=== PATIENT | male | born 1950 | race Caucasian/White ===

== ENCOUNTER → 2017-05-07 | Outpatient (CLI) | payer OTHER | END | disposition home or self-care (01) | LOC: GMAB 10:08 | PROVIDERS: ATTEND Family Medicine | DX: I42.9 Cardiomyopathy, unspecified (principal) ==

== ENCOUNTER → 2017-06-07 | Outpatient (CLI) | payer OTHER | END | disposition home or self-care (01) | LOC: GMAB 10:38 | PROVIDERS: ATTEND Family Medicine | DX: I11.0 Hypertensive heart disease with heart failure (principal); I50.40 Unspecified combined systolic (congestive) and diastolic (congestive) heart failure ==

== ENCOUNTER → 2017-12-18 | Outpatient (CLI) | payer MEDICARE ==
--- NOTE | 2017-12-18 22:44 | CT ---
EXAM DATE: 12/18/2017 2:39 PM CDT. PROCEDURE: CT LUMBAR SPINE WITHOUT IV CONTRAST. INDICATION: SPINAL STENOSIS. COMPARISON: None. TECHNIQUE: Axial CT images of the lumbar spine were obtained without administration of intravenous contrast. This exam was performed according to our departmental dose-optimization program which includes use of Automated Exposure Control, adjustment of the mA and/or kV according to patient size and/or use of iterative reconstruction technique. FINDINGS: There is mild dextrocurvature of the lumbar spine. The lumbar vertebral bodies otherwise demonstrate normal height and alignment. Mild intervertebral disc space height loss L5-S1. Intervertebral disc spaces are otherwise within normal limits. No acute fracture. T12-L1: No significant disc bulge. No spinal canal or neural foraminal narrowing. L1-L2: Mild left eccentric disc bulge. No spinal canal stenosis. Mild facet arthropathy without significant foraminal stenosis. L2-L3: Disc bulge and ligamentous hypertrophy contributes to mild narrowing of the spinal canal. Moderate facet arthropathy results in mild right foraminal narrowing. No significant left foraminal stenosis. L3-L4: No significant spinal canal stenosis. Moderate facet arthropathy contributes to mild right foraminal narrowing. No significant left foraminal stenosis. L4-L5: Mild disc bulge results in mild narrowing of the spinal canal. Moderate facet arthropathy contributes to moderate bilateral foraminal stenoses. L5-S1: Disc bulge without spinal canal stenosis. Mild bilateral facet arthropathy contributes to mild bilateral foraminal narrowing. Abdominal aortic aneurysm measuring 6.3 cm status post aortoiliac endograft placement. The remainder of the partially visualized abdominopelvic organs are unremarkable. IMPRESSION: Mild multilevel degenerative changes of the lumbar spine superimposed on mild dextrocurvature. Degenerative changes most prominent at L4-L5. Infrarenal abdominal aortic aneurysm measuring 6.3 cm status post aortoiliac endograft. Findings are unchanged as compared to 09/02/2015. Electronically signed by: Jaison Yi MD 12/18/2017 10:43 PM CDT
--- NOTE | 2017-12-19 08:51 | US ---
EXAM DESCRIPTION: Extremity,Lower Jose Arteries CLINICAL HISTORY: 67 years Male, PERIPHERAL VASCULAR DISEASE COMPARISON: None. TECHNIQUE: Duplex bilateral lower extremity arterial Doppler evaluation utilizing grayscale, color Doppler, and spectral pulse Doppler evaluation. FINDINGS: Bilaterally from the level of the groin at the common femoral artery monophasic wave pattern throughout the right lower extremity is present and throughout the left lower extremity except for a small focus of biphasic flow in the distal SFA on the left. Significant inflow disease from the distal aortic or iliac stenoses bilaterally is suspected with the changes more severe on the right than on the left. On the right monophasic wave pattern with velocities between 12 and 24 cm/s is present from the groin to the level of the peroneal artery with no flow confirmed in the right posterior tibial or dorsalis pedis artery. On the left, monophasic flow with slightly better velocities are present with the peak velocity in the common femoral artery of 58 cm/s. Lower velocities between 35 and 52 cm/s in the SFA and 27 cm/s in the popliteal artery is present with a monophasic wave pattern. Flow is preserved in the trifurcation vessels with a focus of accelerated flow suggesting a distal stenosis in the posterior tibial artery with spectral broadening and a monophasic wave pattern with peak velocities most diminished and dampened wave pattern noted in the dorsalis pedis artery. IMPRESSION: Markedly abnormal examination suggesting significant distal aortic and pelvic atherosclerotic stenoses with dampened monophasic wave pattern bilaterally throughout both lower extremities with no significant flow noted in the right posterior tibial and dorsalis pedis vessel. High-grade inflow disease above the level of the inguinal ligament bilaterally is suspected, likely with additional atherosclerosis in both lower extremities, right worse than left. Correlation with ankle brachial indices may be of value as well. Electronically signed by: Triston Zaldivar MD 12/19/2017 8:50 AM CDT
== END | disposition home or self-care (01) ==
LOC: US 14:30
PROVIDERS: ATTEND Family Medicine
DX: I73.9 Peripheral vascular disease, unspecified (principal); M54.5 Low back pain; M47.896 Other spondylosis, lumbar region

== ENCOUNTER → 2017-12-23 | Outpatient (CLI) | payer MEDICARE ==
--- NOTE | 2017-12-23 14:14 | CT ---
EXAM DESCRIPTION: CTA Runoff. Computed tomography. CLINICAL HISTORY: STENOSIS COMPARISON: CT abdomen 09/02/2015. TECHNIQUE: CT angiography of the abdominal aorta and both lower extremities is performed during rapid bolus administration of IV contrast media. 100 mL was given due to patient renal status. Three-dimensional volume-rendering imaging is reviewed along with axial helical 2.5 mm source images . Delayed images popliteal fossa bilateral mid feet Total.. Exam DLP: 1948.72 mGy-cm. This exam was performed according to our departmental CT dose-optimization program which includes automated exposure control, adjustment of the mA and/or kV according to patient size and/or use of iterative reconstruction technique; to reduce radiation dose to as low as reasonably achievable (ALARA). FINDINGS: Upper abdominal aorta: Atherosclerotic intimal wall thickening with minimal calcification. Calcification of the ostia of the celiac axis and SMA with 30% diameter stenosis of the celiac axis. Mid-abdominal aorta: Bilateral single renal arteries with early bifurcation of the right renal artery and bifurcation of the left renal artery just medial to the renal pelvis. Moderate moderate calcification of the bilateral ostia approximately 40% diameter stenosis on the right.. Distal abdominal aorta: Infrarenal mesh aortic iliac stent begins just below the renal artery origins. Proximal stent shows thrombus on the posterior wall which becomes circumferential just above the iliac bifurcation. Maximum diameter of the outer aneurysmal lumen is 6.6 x 5.8 cm. This is at the L3-4 disc space level. Maximal stent dimensions are 3.5 x 3.8 cm at the L3 level. 1.7 x 1.7 cm. Radiodense material seen in the posterior aneurysm external to the stent is interpreted to be calcification. Also seen on the prior study. No stent leak is noted. Common iliacs: Right common iliac branch of the stent is completely occluded and terminates just above the right common iliac bifurcation. Minimal intimal thickening/thrombus of the left iliac branch of the stent. Internal iliacs: Moderate atherosclerotic calcifications on the right with opacification from collaterals. Left common iliac artery and branches are well seen. external iliac artery: Not opacified. No calcification and intimal thickening of the left vessel but patent. Right RESOURCE COORDINATOR: Right vessel Opacified by collaterals from the abdominal wall with moderate atherosclerotic calcification. Left vessel opacified with moderate atherosclerotic calcification and bifurcation unremarkable.. Right SFA intimal wall thickening and irregularities of the lumen. Right popliteal: No contrast in the initial or delayed images. Minimal atherosclerotic calcification. Right trifurcation vessels: Minimal contrast proximal PRODUCT ASSEMBLER with irregular calcification not visualized at the level of the ankle mortise. Anterior tibial artery not seen on initial images and intermittently poorly visualized on delayed images. PDA Well-demonstrated on the delayed images but appears occluded above the level of the ankle mortise. Peroneal artery poorly visualized proximally on the initial images in and intermittently visualized on the delayed images. Left SFA: Intermittent narrowing with focal calcification distally. Poor opacification distally. Better on delayed images. Left popliteal: Minimal or no contrast initially. Fair amount of contrast on the delayed images.. Left trifurcation vessels: PRODUCT ASSEMBLER Poorly visualized on the initial images and occluded above the ankle. Peroneal and MIKE not visualized on the initial images. Delayed: Poor visualization of the peroneal and PRODUCT ASSEMBLER and not visualized above the ankle. MIKE not visualized. Other: Minimal atelectasis in the lung bases. Minimal enlargement of the right lobe of the liver. Spondylosis in the lumbar spine. Small fatty inguinal hernia not containing bowel. IMPRESSION: 1. Complete occlusion of the right common iliac branch of the aortoiliac mesh stent. More thrombus in the aortic segment with smaller diameter of contrast lumen in the stent. Complete occlusion of the right common iliac branch was not seen on the prior study. Contrast flow diminished in the right internal iliac and right common femoral artery from collaterals. Initial visualization of right trifurcation vessels was 4 but improvement with delay. Reported no runoff into the ankle. 2. Poor contrast flow into the distal left femoral artery and popliteal. Delayed visualization of the left popliteal artery with trifurcation vessels not visualized in the ankle. 3. Varying degrees of stenosis of the celiac axis, proximal SMA, and bilateral proximal renal arteries. Electronically signed by: Ki Graham MD 12/23/2017 2:12 PM CDT
== END | disposition home or self-care (01) ==
LOC: CT 09:33
PROVIDERS: ATTEND Family Medicine
DX: M48.07 Spinal stenosis, lumbosacral region (principal)

== ENCOUNTER → 2018-01-06 | Outpatient (CLI) | payer MEDICARE | LOC: GMAB 14:35 | PROVIDERS: ATTEND Family Medicine | DX: I70.92 Chronic total occlusion of artery of the extremities (principal) ==

== ENCOUNTER 2018-02-11 20:02 | Emergency (ER) | payer MEDICARE ==
--- NOTE | 2018-02-11 20:12 | ED.PDOC ---
History of Present Illness - General Chief Complaint: Respiratory Problem Time Seen by Provider: 02/11/18 20:09 Source: patient, family - Exam Limitations: no limitations - History of Present Illness Initial Comments: Eduardo Briones 67 y/o male with history of CAD s/p pacemaker;PVD w/recent femorofemoral crossover graft 30 December 2017 brought by after he was found to be shaky,sob which gradually got worse the last 2 days.Denies cough,dysuria , chest pain symptoms,N/V/D.Had T-104.1 taken here in er. Timing/Duration: other - see hpi Severity: moderate Activities at Onset: none Possible Cause: no prior episodes Improving Factors: nothing Worsening Factors: nothing Associated Symptoms: fever Respiratory Risk Factors: no cause identified Allergies/Adverse Reactions: Allergies Penicillins Allergy (Verified 02/11/18 20:23) Home Medications: Ambulatory Orders Amiodarone HCl [Pacerone] 200 mg PO DAILY 02/11/18 Apixaban [Eliquis] 5 mg PO BID 02/11/18 Atorvastatin Calcium [Lipitor] 40 mg PO BEDTIME 02/11/18 Benztropine Mesylate 2 mg PO DAILY 02/11/18 Carvedilol [Coreg] 6.25 mg PO BID 02/11/18 Furosemide 40 mg PO BID 02/11/18 Pantoprazole Sodium 40 mg PO DAILY 02/11/18 Pregabalin [Lyrica] 100 mg PO BID 02/11/18 Ranolazine [Ranexa] 500 mg PO BID 02/11/18 Rotigotine [Neupro] 4 mg TD DAILY 02/11/18 Sacubitril-Valsartan [Entresto 49-51 mg] 1 tablet PO BID 02/11/18 Spironolactone 25 mg PO DAILY 02/11/18 Topiramate [Qudexy Xr] 200 mg PO BID 02/11/18 Review of Systems - Review of Systems Constitutional: States: chills, fever EENTM: States: no symptoms reported Respiratory: States: see HPI Cardiology: States: see HPI Gastrointestinal/Abdominal: States: no symptoms reported Genitourinary: States: no symptoms reported Musculoskeletal: States: no symptoms reported Skin: States: no symptoms reported All other Systems: Reviewed and Negative Past Medical History (General) - Patient Medical History Hx Cardiac Disorders: Yes - [place]-1997 Hx Congestive Heart Failure: Yes Hx Other PMH: Yes - PVD Surgical History: coronary bypass surgery, pacemaker, other - AAA surgery, femoral bypass graft Family Medical History - Family History Father Living Status: Unknown Hx Cardiac Disease: Yes - multiple family members Physical Exam - Physical Exam General Appearance: Alert, Anxious, No apparent distress, Other - tremulous Eyes, Ears, Nose, Throat Exam: normal ENT inspection, pharynx normal Neck: non-tender, full range of motion, supple, normal inspection Respiratory: lungs clear, normal breath sounds, no respiratory distress Cardiovascular/Chest: normal peripheral pulses, regular rate, rhythm, no murmur Peripheral Pulses: posterior tibialis,right: 1+ - doppler, posterior tibialis, left: 1+ - doppler Gastrointestinal/Abdominal: non tender, soft, no organomegaly Extremity: non-tender, no pedal edema, no calf tenderness Neurologic: alert, oriented x 3 Skin Exam: normal color, warm/dry, other - left groin incision site -well healed no tender induration,no drainage noted Progress - Progress Progress: 02/11/18 21:30 Vital Signs - 8 hr 02/11/18 02/11/18 20:19 20:28 Temperature 104.1 F H Pulse Rate [ 79 left] Respiratory 18 24 Rate Blood Pressure 166/97 [left] O2 Sat by Pulse 98 Oximetry 02/11/18 21:37 NO BLOOD CULTURE TAKEN SINCE NO ANAEROBIC CULTURE ;Accdg. to Lab personnel could not just get one bottle since it will not be accepted to reference lab where it is sent;patient wiil be given initial coverage with Vancomycin for his procedure done 3 weeks ago;Lactic acid within normal range. 02/11/18 21:43 calculated CrCl-45 ml/min - Results/Orders Results/Orders: 02/11/18 20:11 B-TYPE NATRIURETIC PEPTIDE/BNP Stat CARDIAC PANEL,ER Stat HEPATIC FUNCTION PANEL Stat LACTIC ACID Stat Chest,1 View [RAD] Stat 02/11/18 21:27 URINALYSIS Stat 02/11/18 21:36 Vancomycin HCl Inj 1,000 mg Sodium Chloride 0.9% 250Ml [NS 250ml] 250 ml IVPB ONCE Laboratory Results - last 24 hr 02/11/18 02/11/18 02/11/18 20:39 20:39 21:37 WBC 8.9 RBC 4.14 L Hgb 12.5 L Hct 37.2 L MCV 89.9 MCH 30.1 MCHC 33.5 RDW 15.6 H Plt Count 133 MPV 9.3 Absolute Neuts (auto) 7.00 H Absolute Lymphs (auto) 0.50 L Absolute Monos (auto) 1.00 H Absolute Eos (auto) 0.30 Absolute Basos (auto) 0.00 Neutrophils % 78.6 H Lymphocytes % 6.0 L Monocytes % 11.8 H Eosinophils % 3.3 Basophils % 0.3 PT 16.5 H INR 1.430 PTT (SP) 30.7 Sodium 136 Potassium 4.0 Chloride 110 Carbon Dioxide 20 L Anion Gap 10.0 L BUN 40 H Creatinine 2.12 H BUN/Creatinine Ratio 18.9 Random Glucose 152 H Serum Osmolality 284.7 Lactic Acid 1.5 Calcium 8.4 Magnesium 1.8 Total Bilirubin 0.6 Direct Bilirubin 0.1 Indirect Bilirubin 0.5 AST 18 ALT 14 Alkaline Phosphatase 49 Creatine Kinase 264 H* CK-MB (CK-2) 1.9 CK-MB (CK-2) % Not Reportable Troponin I 0.05 B-Natriuretic Peptide 555.0 H* Serum Total Protein 7.2 Albumin 3.5 Urine Color Yellow Urine Appearance Clear Urine pH 5.0 Ur Specific [place] >= 1.030 Urine Protein 100 H Urine Glucose (UA) Negative Urine Ketones Trace Urine Blood Moderate H Urine Nitrite Negative Urine Bilirubin Negative Urine Urobilinogen 0.2 Ur Leukocyte Esterase Negative Urine RBC 1-3 Urine WBC 0-1 Ur Epithelial Cells 0 Urine Bacteria Rare Urine Mucus Trace - EKG/XRAY/CT Comments: HR 69-pacemaker rhythm XRAY: chest - no acute abnormalities/radiologist Departure - Departure Clinical Impression: History of recent vascular procedure, CKD (chronic kidney disease) stage 3, GFR 30-59 ml/min Dyspnea Qualifiers: Dyspnea type: unspecified Qualified Code(s): R06.00 - Dyspnea, unspecified Fever Qualifiers: Fever type: unspecified Qualified Code(s): R50.9 - Fever, unspecified Time of Disposition: 22:22 Disposition: Discharge to Home or Self Care Departure Forms: ED Discharge - Pt. Copy, Patient Portal Self Enrollment Referrals: Juanito Britton MD [Primary Care Provider] - 1-2 Weeks Home Medications: Ambulatory Orders Amiodarone HCl [Pacerone] 200 mg PO DAILY 02/11/18 Apixaban [Eliquis] 5 mg PO BID 02/11/18 Atorvastatin Calcium [Lipitor] 40 mg PO BEDTIME 02/11/18 Benztropine Mesylate 2 mg PO DAILY 02/11/18 Carvedilol [Coreg] 6.25 mg PO BID 02/11/18 Furosemide 40 mg PO BID 02/11/18 Pantoprazole Sodium 40 mg PO DAILY 02/11/18 Pregabalin [Lyrica] 100 mg PO BID 02/11/18 Ranolazine [Ranexa] 500 mg PO BID 02/11/18 Rotigotine [Neupro] 4 mg TD DAILY 02/11/18 Sacubitril-Valsartan [Entresto 49-51 mg] 1 tablet PO BID 02/11/18 Spironolactone 25 mg PO DAILY 02/11/18 Topiramate [Qudexy Xr] 200 mg PO BID 02/11/18 Transfer to Outside Facility - Transfer Information Accepting Provider:: D/W Dr. Madison-Hospitalist Accepting Facility: [facility] Reason for Transfer: required specialist not available - infectious disease/
[2018-02-11] MEDS ORDERED: ACETAMINOPHEN 325 MG TAB PO ONE (20:42)
--- NOTE | 2018-02-11 21:03 | RAD ---
EXAM DESCRIPTION: Chest,1 View CLINICAL HISTORY: short of breath, fever COMPARISON: None. FINDINGS: Cardiac silhouette is within normal limits. There is no focal parenchymal or pleural disease. Visualized osseous structures are within normal limits. IMPRESSION: No evidence of acute cardiopulmonary disease. Electronically signed by: Ki Tabor 02/11/2018 9:02 PM CDT
[2018-02-11] MEDS ORDERED: VANCOMYCIN HCL INJ 1,000 MG in SODIUM CHLORIDE 0.9% 250ML 250 ML IVPB ONE (21:36)
[2018-02-11] MEDS ORDERED: VANCOMYCIN HCL INJ 1,000 MG VIAL IVPB ONE (21:42)
[2018-02-11] MEDS ORDERED: SODIUM CHLORIDE 0.9% 250ML 250 ML ONE (21:42)
[2018-02-11 22:11] VITALS: TEMP 102.1; O2SAT 94
[2018-02-11 22:59] VITALS: BP 113/69
== END 2018-02-11 23:01 | disposition short-term general hospital (02) ==
LOC: ER 20:02
DX: R06.00 Dyspnea, unspecified (principal); R50.9 Fever, unspecified; N18.3 Chronic kidney disease, stage 3 (moderate); I50.9 Heart failure, unspecified; I25.2 Old myocardial infarction; Z95.1 Presence of aortocoronary bypass graft; Z95.0 Presence of cardiac pacemaker; Z98.890 Other specified postprocedural states; Z79.01 Long term (current) use of anticoagulants
CPT/HCPCS: 36415; 71045; 80048; 80076; 81001; 82550; 82553; 83605; 83880; 84484; 85025; 85610; 85730; 93005; J3370; J7050

== ENCOUNTER 2018-02-21 11:50 | Emergency (ER) | payer MEDICARE ==
[2018-02-21] MEDS ORDERED: SODIUM CHLORIDE 0.9% 500ML 500 ML IVS ONE (12:18)
--- NOTE | 2018-02-21 12:20 | ED.PDOC ---
History of Present Illness - General Chief Complaint: Cardiovascular Problem Stated Complaint: Low BP Time Seen by Provider: 02/21/18 12:17 Source: patient - History of Present Illness Timing/Duration: 1/2 hour Severity: mild Improving Factors: rest Worsening Factors: nothing Associated Symptoms: other - vision changes Allergies/Adverse Reactions: Allergies Penicillins Allergy (Verified 02/11/18 20:23) Home Medications: Ambulatory Orders Amiodarone HCl [Pacerone] 200 mg PO DAILY 02/11/18 Apixaban [Eliquis] 5 mg PO BID 02/11/18 Atorvastatin Calcium [Lipitor] 40 mg PO BEDTIME 02/11/18 Benztropine Mesylate 2 mg PO DAILY 02/11/18 Carvedilol [Coreg] 6.25 mg PO BID 02/11/18 Furosemide 40 mg PO BID 02/11/18 Pantoprazole Sodium 40 mg PO DAILY 02/11/18 Pregabalin [Lyrica] 100 mg PO BID 02/11/18 Ranolazine [Ranexa] 500 mg PO BID 02/11/18 Rotigotine [Neupro] 4 mg TD DAILY 02/11/18 Sacubitril-Valsartan [Entresto 49-51 mg] 1 tablet PO BID 02/11/18 Spironolactone 25 mg PO DAILY 02/11/18 Topiramate [Qudexy Xr] 200 mg PO BID 02/11/18 Review of Systems - Review of Systems Constitutional: Denies: chills, diaphoresis, fever, malaise, weakness EENTM: States: other - "seeing spots" Respiratory: States: no symptoms reported. Denies: cough, short of breath Cardiology: States: no symptoms reported. Denies: chest pain, palpitations, syncope Gastrointestinal/Abdominal: Denies: abdominal pain, diarrhea, nausea, vomiting Genitourinary: States: no symptoms reported Musculoskeletal: States: no symptoms reported Skin: States: no symptoms reported Neurological: Denies: headache, numbness, paresthesia Past Medical History (General) - Patient Medical History Hx Stroke: Yes Hx Cardiac Disorders: Yes - [place]-1997 Hx Congestive Heart Failure: Yes Hx Pacemaker: Yes - defibrillator Hx Hypertension: Yes - Vaccination History Hx Tetanus, Diphtheria Vaccination: No Hx Influenza Vaccination: No Hx Pneumococcal Vaccination: No - Social History Hx Alcohol Use: Yes - occ Family Medical History - Family History Father Living Status: Unknown Hx Cardiac Disease: Yes - multiple family members Physical Exam - Physical Exam General Appearance: Alert, No apparent distress Eye Exam: bilateral normal Ears, Nose, Throat: normal ENT inspection, normal pharynx Neck: supple Respiratory: lungs clear, normal breath sounds, no respiratory distress Cardiovascular/Chest: regular rate, rhythm, no edema Gastrointestinal/Abdominal: normal bowel sounds, non tender, soft Extremity: normal range of motion, non-tender, normal inspection Neurologic: no motor/sensory deficits, alert, normal mood/affect, oriented x 3 Skin Exam: normal color, warm/dry Departure - Departure Clinical Impression: Orthostatic hypotension, Dehydration, mild Disposition: Discharge to Home or Self Care Departure Forms: ED Discharge - Pt. Copy, Patient Portal Self Enrollment Instructions: DI for Chest Pain Referrals: Juanito Britton MD [Primary Care Provider] - 1-2 Weeks Home Medications: Ambulatory Orders Amiodarone HCl [Pacerone] 200 mg PO DAILY 02/11/18 Apixaban [Eliquis] 5 mg PO BID 02/11/18 Atorvastatin Calcium [Lipitor] 40 mg PO BEDTIME 02/11/18 Benztropine Mesylate 2 mg PO DAILY 02/11/18 Carvedilol [Coreg] 6.25 mg PO BID 02/11/18 Furosemide 40 mg PO BID 02/11/18 Pantoprazole Sodium 40 mg PO DAILY 02/11/18 Pregabalin [Lyrica] 100 mg PO BID 02/11/18 Ranolazine [Ranexa] 500 mg PO BID 02/11/18 Rotigotine [Neupro] 4 mg TD DAILY 02/11/18 Sacubitril-Valsartan [Entresto 49-51 mg] 1 tablet PO BID 02/11/18 Spironolactone 25 mg PO DAILY 02/11/18 Topiramate [Qudexy Xr] 200 mg PO BID 02/11/18
[2018-02-21 12:31] VITALS: TEMP 98.7
[2018-02-21 13:17] VITALS: O2SAT 96
[2018-02-21 13:29] VITALS: BP 111/65
== END 2018-02-21 13:38 | disposition home or self-care (01) ==
LOC: ER 11:50
DX: I95.1 Orthostatic hypotension (principal); E86.0 Dehydration; I11.0 Hypertensive heart disease with heart failure; I50.9 Heart failure, unspecified; I25.2 Old myocardial infarction; Z95.810 Presence of automatic (implantable) cardiac defibrillator; Z79.01 Long term (current) use of anticoagulants; Z79.899 Other long term (current) drug therapy; Z86.73 Personal history of transient ischemic attack (TIA), and cerebral infarction without residual deficits
CPT/HCPCS: 36415; 80053; 83605; 85025; J7040

== ENCOUNTER → 2018-05-30 | Outpatient (CLI) | payer MEDICARE | LOC: GMAE 10:13 | PROVIDERS: ATTEND Family Medicine | DX: I49.2 Junctional premature depolarization (principal); R06.02 Shortness of breath ==

== ENCOUNTER → 2018-06-04 | Outpatient (CLI) | payer MEDICARE ==
--- NOTE | 2018-06-04 16:50 | RAD ---
EXAM DESCRIPTION: Chest,2 Views CLINICAL HISTORY: CHEST PAIN COMPARISON: Previous study February 11, 2018 TECHNIQUE: PA/lateral FINDINGS: Heart is large with centrally prominent pulmonary vascularity. Cardiac pacer defibrillator is in place with unchanged position of electrode leads. No pleural effusion or pneumothorax. No consolidating infiltrate. Lateral view shows intact sternum and T-spine. No significant change since previous study. IMPRESSION: Large heart without congestive failure. Electronically signed by: Gordy Simon MD 06/04/2018 4:49 PM CDT
== END ==
LOC: RAD 16:32
PROVIDERS: ATTEND Family Medicine
DX: R07.9 Chest pain, unspecified (principal); I51.7 Cardiomegaly

== ENCOUNTER → 2019-03-13 | Outpatient (CLI) | payer MEDICARE ==
--- NOTE | 2019-03-13 11:06 | RAD ---
EXAM DESCRIPTION: Chest,2 Views CLINICAL HISTORY: DYSPHONIA COUGH COMPARISON: Previous study June 04, 2018 TECHNIQUE: PA/lateral FINDINGS: Cardiac history defibrillator is in place. Heart size is large with normal pulmonary vascularity. No pneumothorax. Slight blunting of costophrenic angles consistent with trace pleural fluid bilaterally. Lungs are clear with no consolidating infiltrate. Lateral view shows intact sternum and T-spine. IMPRESSION: Large heart without congestive failure. Electronically signed by: Gordy Simon MD 03/13/2019 11:03 AM CDT
== END ==
LOC: RAD 10:13
PROVIDERS: ATTEND Otolaryngology Otolaryngology/Facial Plastic Surgery
DX: R49.0 Dysphonia (principal); R05 Cough

== ENCOUNTER → 2019-04-02 | Outpatient (CLI) | payer MEDICARE | LOC: YCFC.O 10:04 | PROVIDERS: ATTEND Family Medicine | DX: I50.9 Heart failure, unspecified (principal); R58 Hemorrhage, not elsewhere classified; E78.5 Hyperlipidemia, unspecified; R53.83 Other fatigue ==

== ENCOUNTER → 2019-07-10 | Outpatient (CLI) | payer MEDICARE ==
[~2019-07-10] MED LIST: ALBUTEROL SULFATE 2.5 MG/3 ML VIAL NEB ONE
== END ==
LOC: RESP 10:23
PROVIDERS: ATTEND Family Medicine
DX: R06.02 Shortness of breath (principal)
CPT/HCPCS: 94060; J7611

== ENCOUNTER → 2019-08-20 | Outpatient (CLI) | payer MEDICARE | LOC: LAB.O 14:21 | PROVIDERS: ATTEND Family Medicine | DX: N39.0 Urinary tract infection, site not specified (principal) ==

== ENCOUNTER → 2020-01-18 | Outpatient (CLI) | payer MEDICARE | LOC: GMAE 11:45 | PROVIDERS: ATTEND Family Medicine | DX: Z12.5 Encounter for screening for malignant neoplasm of prostate (principal); I10 Essential (primary) hypertension; E78.2 Mixed hyperlipidemia | CPT/HCPCS: 84443; G0103 ==

== ENCOUNTER → 2020-01-28 | Outpatient (CLI) | payer MEDICARE ==
--- NOTE | 2020-01-28 22:37 | US ---
EXAM DESCRIPTION: Renal: Ultrasound. CLINICAL HISTORY: 69 years Male ACUTE KIDNEY FAILURE COMPARISON: CTA abdominal aorta and bilateral lower extremity runoff November 10. TECHNIQUE: Transcutaneous scanning: Two-dimensional and Doppler modes. FINDINGS: Right kidney measures 9.8 x 5.9 x 4.96 cm; mid-renal cortical thickness 12 mm. . Cortical echogenicity greater than the liver. No hydronephrosis No echogenic stones. Minimally lobulated contour of the kidney with no perinephric fluid. Normal vascularity. Proximal ureter not seen. Left kidney measures 11.6 x 5.6 x 7.2 cm; mid-renal cortical thickness 11.5 mm.. Difficult to evaluate cortical echogenicity due to patient body habitus, with limited resolution of images No hydronephrosis. No echogenic stones. Lobulated contour of the kidney with no perinephric fluid. Normal vascularity.. Proximal ureter not visible. Urinary bladder was visualized. 6.8 mm. Ureteral jet in the bladder not seen by color Doppler. No voiding. Abdominal aorta: Normal caliber of the proximal and mid segment. AP diameter of the distal abdominal [place] aorta is 6.7 cm. This includes endovascular stent graft. Similar size on the prior CTA aorta. The anechoic lumen measures approximately 1.4 cm. IMPRESSION: 1. Right kidney smaller than the left kidney with bilateral cortical thinning and increased cortical echogenicity in the right kidney greater than the liver. Unable to evaluate echogenicity of the left renal cortex. No hydronephrosis no echogenic stones bilaterally. Lobulated contour. Urinary bladder small. 2. Distal abdominal aorta greater than 6 cm diameter as demonstrated on prior imaging with aortoiliac endovascular stent graft. Electronically signed by: Ki Graham MD 01/28/2020 10:35 PM CDT
== END ==
LOC: US 11:00
PROVIDERS: ATTEND Family Medicine
DX: N17.9 Acute kidney failure, unspecified (principal); N28.9 Disorder of kidney and ureter, unspecified; I77.811 Abdominal aortic ectasia; Z95.828 Presence of other vascular implants and grafts

== ENCOUNTER → 2020-01-29 | Outpatient (CLI) | payer MEDICARE ==
--- NOTE | 2020-01-29 13:12 | CT ---
TECHNIQUE: Axial images of the lumbar spine were obtained with multiple reconstructions provided. This exam was performed according to our departmental dose-optimization program, which includes automated exposure control, adjustment of the mA and/or kV according to patient size and/or use of iterative reconstruction technique. CLINICAL HISTORY PROVIDED: LOW BACK PAIN COMPARISON: None available. FINDINGS: Five lumbar type vertebral bodies are present. Alignment: Normal. No acute subluxation. Fracture: None present. Paraspinal Soft Tissues/ Retroperitoneum: Atherosclerotic disease. Aortobiiliac endovascular stent graft, and associated residual aneurysm sac fully detailed on the recent CTA runoff. Scattered colonic diverticula without focal inflammatory change. No evidence of bowel obstruction. No findings to suggest appendicitis. L1/2: Posterior disc space narrowing. No significant stenosis. Bilateral facet hypertrophy. L2/3: Posterior disc space narrowing. Diffuse symmetric disc bulge. Bilateral facet hypertrophy with thickening of the ligamentum flavum. Moderate central canal stenosis. Moderate right and mild left neural foraminal narrowing. L3/4: Diffuse symmetric disc bulge. Bilateral facet hypertrophy. Mild central canal stenosis. Mild bilateral neural foraminal narrowing. L4/5: Posterior disc space narrowing. Diffuse symmetric disc bulge. Bilateral facet hypertrophy. Mild central canal stenosis. Moderate bilateral neural foraminal narrowing. L5/S1: Posterior disc space narrowing with vacuum disc phenomenon. Diffuse symmetric disc bulge. No significant central canal stenosis. Bilateral facet hypertrophy. Moderate bilateral neural foraminal narrowing. IMPRESSION: Multilevel lumbar spondylosis most pronounced at L4/L5 and L5/S1. Electronically signed by: Martín Lawson MD 01/29/2020 1:11 PM CDT
== END ==
LOC: CT 01-28 10:59
PROVIDERS: ATTEND Family Medicine
DX: M47.896 Other spondylosis, lumbar region (principal); M47.897 Other spondylosis, lumbosacral region

== ENCOUNTER 2020-02-09 22:01 | Emergency (ER) | payer MEDICARE ==
[2020-02-09] MEDS ORDERED: SODIUM CHLORIDE 0.9% (FLUSH) 10 ML SYG IV PRN (22:15)
[2020-02-09] MEDS ORDERED: ASPIRIN TABLET 325 MG TAB PO ONE (22:15)
--- NOTE | 2020-02-09 22:22 | ED.PDOC ---
History of Present Illness - General Chief Complaint: Chest Pain/SD Stated Complaint: chest pain Time Seen by Provider: 02/09/20 22:15 Source: patient Exam Limitations: no limitations Additional Information: The patient is a 69 year old male with PMH significant for Parkinson's Disease, pacemaker/AICD, CAD s/p ACS (SD 1997), CKD. He states that he had a C one year ago that showed some disease but they were unable to perform any interventions. He states that around one hour prior to arrival today he developed midline chest pain that he describes as "someone standing on my chest." The pain did not radiate and was not associated with nausea/vomiting or shortness of breath. He says that it did not feel like when he had his prior SD. His symptoms lasted around 30 minutes. He also noticed palpitations and recorded a heart rate of 135. His pain resolved prior to arrival and he does not have any complaints currently. - History of Present Illness Allergies/Adverse Reactions: Allergies Penicillins Allergy (Verified 02/11/18 20:23) Home Medications: Ambulatory Orders Amiodarone HCl [Pacerone] 200 mg PO DAILY 02/11/18 Apixaban [Eliquis] 5 mg PO BID 02/11/18 Atorvastatin Calcium [Lipitor] 40 mg PO BEDTIME 02/11/18 Benztropine Mesylate 2 mg PO DAILY 02/11/18 Carvedilol [Coreg] 6.25 mg PO BID 02/11/18 Furosemide 40 mg PO PRN 02/11/18 Pantoprazole Sodium 40 mg PO DAILY 02/11/18 Ranolazine [Ranexa] 500 mg PO BID 02/11/18 Sacubitril-Valsartan [Entresto 49-51 mg] 1 tablet PO BID 02/11/18 Spironolactone 25 mg PO DAILY 02/11/18 Topiramate [Qudexy Xr] 200 mg PO BID 02/11/18 Carbidopa-Levodopa [Carbidopa/Levodopa 25-100 mg] 6 tab PO DAILY 02/09/20 Fluticasone/Salmeterol 100/50 [Advair 100/50 Diskus] 1 puff INH PRN 02/09/20 Past Medical History (General) - Patient Medical History Hx Stroke: Yes Hx Cardiac Disorders: Yes - SD-1997 Hx Congestive Heart Failure: Yes Hx Pacemaker: Yes - defibrillator Hx Hypertension: Yes Hx Diabetes: No Hx MRSA: No - Vaccination History Hx Tetanus, Diphtheria Vaccination: No Hx Influenza Vaccination: No Hx Pneumococcal Vaccination: No - Social History Hx Tobacco Use: No Hx Alcohol Use: Yes - occ Family Medical History - Family History Father Living Status: Unknown Hx Cardiac Disease: Yes - multiple family members Progress - Progress Progress: 02/09/20 23:06 Patient reassessed. He continues to feel well, denies complaint. Initial troponin is negative. Given known history of CAD will plan observation admission for cardiac monitoring and to trend troponin. Will repeat troponin at 2 hours and if negative will admit to hospitalist service. 02/10/20 01:05 Patient reassessed, there is now mild troponin elevation. Will start heparin and transfer to [facility] for cardiology evaluation. 02/10/20 01:[address] Mariee at [facility] who accepts for admit. - Results/Orders Results/Orders: 02/09/20 22:15 IV Care:Saline Lock per Protoc QSHIFT Telemetry .ONCE Sodium Chloride 0.9% (Flush) [Saline Flush Syringe] 10 ml IV PRN PRN EKG Stat Pulse Ox Stat 02/09/20 22:16 EKG Assessment ONCE Pulse Oximetry Assessment DAILY 02/09/20 23:15 EKG STAT 02/10/20 01:00 Heparin Premix [Heparin/D5w 25,000U/500ML] 25,000 units Premix Bag 1 bag IVS PRN Laboratory Results - last 24 hr 02/09/20 02/10/20 22:15 00:15 WBC 7.1 RBC 4.59 L Hgb 14.4 Hct 43.6 MCV 94.9 H MCH 31.3 H MCHC 33.0 RDW 14.2 Plt Count 187 MPV 9.1 Absolute Neuts (auto) 4.70 Absolute Lymphs (auto) 1.70 Absolute Monos (auto) 0.50 Absolute Eos (auto) 0.10 Absolute Basos (auto) 0.10 Neutrophils % 66.7 Lymphocytes % 23.2 Monocytes % 7.7 Eosinophils % 1.5 Basophils % 0.9 PT 10.4 INR 1.05 PTT (SP) 24.5 Sodium 137 Potassium 3.8 Chloride 107 Carbon Dioxide 22 Anion Gap 11.8 L BUN 43 H Creatinine 2.10 H BUN/Creatinine Ratio 20.5 H Random Glucose 121 H Serum Osmolality 285.9 Calcium 9.0 Magnesium 2.0 Creatine Kinase 51 CK-MB (CK-2) 2.9 CK-MB (CK-2) % Not Reportable Troponin I 0.02 0.15 H* B-Natriuretic Peptide 398.0 H* - EKG/XRAY/CT Comments: 2201 Paced Rhythm Rate 70 No STEMI XRAY: chest Xray Comments: No acute disease - Additional EKG/XRAY/Consults Comments: 0013 Paced rhythm at 65, no STEMI Departure - Departure Clinical Impression: NSTEMI (non-ST elevated myocardial infarction) Time of Disposition: 01:14 Disposition: Transfer to Hospital Condition: Fair Departure Forms: ED Discharge - Pt. Copy, Patient Portal Self Enrollment Instructions: DI for Chest Pain Referrals: PEYTON JOHNSON MD [Primary Care Provider] - 1-2 Weeks Home Medications: Ambulatory Orders Amiodarone HCl [Pacerone] 200 mg PO DAILY 02/11/18 Apixaban [Eliquis] 5 mg PO BID 02/11/18 Atorvastatin Calcium [Lipitor] 40 mg PO BEDTIME 02/11/18 Benztropine Mesylate 2 mg PO DAILY 02/11/18 Carvedilol [Coreg] 6.25 mg PO BID 02/11/18 Furosemide 40 mg PO PRN 02/11/18 Pantoprazole Sodium 40 mg PO DAILY 02/11/18 Ranolazine [Ranexa] 500 mg PO BID 02/11/18 Sacubitril-Valsartan [Entresto 49-51 mg] 1 tablet PO BID 02/11/18 Spironolactone 25 mg PO DAILY 02/11/18 Topiramate [Qudexy Xr] 200 mg PO BID 02/11/18 Carbidopa-Levodopa [Carbidopa/Levodopa 25-100 mg] 6 tab PO DAILY 02/09/20 Fluticasone/Salmeterol 100/50 [Advair 100/50 Diskus] 1 puff INH PRN 02/09/20
--- NOTE | 2020-02-09 22:51 | RAD ---
EXAM DESCRIPTION: Chest, x-ray 1 View CLINICAL HISTORY: chest pain COMPARISON: March 13, 2019 FINDINGS: Cardiac silhouette is enlarged, unchanged compared with the prior exam. Pacer leads project over the heart. EKG leads project over the chest. There is no focal parenchymal or pleural disease. There is no acute osseous process visualized. IMPRESSION: No evidence of acute cardiopulmonary disease. Electronically signed by: Alphonso Son MD 02/09/2020 10:50 PM CDT
[2020-02-09 23:06] VITALS: O2SAT 97
[2020-02-10] MEDS ORDERED: HEPARIN PREMIX 25,000 UNITS in PREMIX BAG 1 BAG IVS SCH (01:00)
[2020-02-10] MEDS ORDERED: HEPARIN PREMIX 500 ML ONE (01:03)
[2020-02-10 01:10] VITALS: BP 123/79
[2020-02-10 01:41] VITALS: TEMP 98.5
== END 2020-02-10 01:41 | disposition short-term general hospital (02) ==
LOC: ER 22:01
DX: I21.4 Non-ST elevation (NSTEMI) myocardial infarction (principal); R79.89 Other specified abnormal findings of blood chemistry; I25.2 Old myocardial infarction; I25.10 Atherosclerotic heart disease of native coronary artery without angina pectoris; I13.0 Hypertensive heart and chronic kidney disease with heart failure and stage 1 through stage 4 chronic kidney disease, or unspecified chronic kidney disease; N18.9 Chronic kidney disease, unspecified; I50.9 Heart failure, unspecified; G20 Parkinson's disease; Z79.01 Long term (current) use of anticoagulants; Z95.0 Presence of cardiac pacemaker
CPT/HCPCS: 71045; 80048; 82550; 82553; 83880; 84484; 85025; 85610; 85730; 93005; A4216; J1644